=== PATIENT | female | born 1975 | race Caucasian/White ===

== ENCOUNTER → 2016-06-02 | Outpatient (CLI) | payer OTHER ==
[~2016-06-02] MED LIST: CIPRO 500MG TA500 MG PO; NORCO 325 MG-51 TAB PO; NORCO 325 MG-7.1 TAB PO
== END ==
LOC: BHSO 15:00
DX: F33.1 Major depressive disorder, recurrent, moderate (principal)

== ENCOUNTER → 2016-08-18 | Outpatient (CLI) | payer OTHER | LOC: BHSO 13:00 | DX: F33.2 Major depressive disorder, recurrent severe without psychotic features (principal) ==

== ENCOUNTER → 2016-08-28 | Outpatient (CLI) | payer OTHER | LOC: BHSO 08:21 | DX: F33.2 Major depressive disorder, recurrent severe without psychotic features (principal) ==

== ENCOUNTER → 2016-09-25 | Outpatient (CLI) | payer OTHER | LOC: BHSO 08:19 | DX: F33.41 Major depressive disorder, recurrent, in partial remission (principal) ==

== ENCOUNTER → 2016-11-15 | Outpatient (CLI) | payer OTHER | LOC: BHSO 08:05 | DX: F33.1 Major depressive disorder, recurrent, moderate (principal) ==

== ENCOUNTER → 2016-12-14 | Outpatient (CLI) | payer OTHER | LOC: BHSO 09:01 | DX: F33.2 Major depressive disorder, recurrent severe without psychotic features (principal) ==

== ENCOUNTER → 2017-01-03 | Outpatient (CLI) | payer OTHER | LOC: BHSO 16:01 | DX: F33.1 Major depressive disorder, recurrent, moderate (principal) ==

== ENCOUNTER → 2017-01-05 | Outpatient (CLI) | payer OTHER | LOC: BHSO 08:08 | DX: F33.1 Major depressive disorder, recurrent, moderate (principal) ==

== ENCOUNTER → 2017-01-22 | Outpatient (CLI) | payer OTHER | LOC: BHSO 13:05 | DX: F33.1 Major depressive disorder, recurrent, moderate (principal) ==

== ENCOUNTER → 2017-02-12 | Outpatient (CLI) | payer OTHER | LOC: BHSO 09:52 | DX: F33.2 Major depressive disorder, recurrent severe without psychotic features (principal) ==

== ENCOUNTER → 2017-02-22 | Outpatient (CLI) | payer OTHER | LOC: BHSO 14:00 | DX: F33.2 Major depressive disorder, recurrent severe without psychotic features (principal) ==

== ENCOUNTER → 2017-03-23 | Outpatient (CLI) | payer OTHER | LOC: BHSO 15:01 | DX: F33.2 Major depressive disorder, recurrent severe without psychotic features (principal) ==

== ENCOUNTER → 2017-04-25 | Outpatient (CLI) | payer OTHER | LOC: BHSO 13:52 | DX: Z01.89 Encounter for other specified special examinations (principal) ==

== ENCOUNTER → 2017-05-01 | Outpatient (CLI) | payer OTHER | LOC: BHSO 08:46 | DX: F33.2 Major depressive disorder, recurrent severe without psychotic features (principal) ==

== ENCOUNTER → 2017-05-14 | Outpatient (CLI) | payer OTHER | LOC: BHSO 09:00 | DX: F33.2 Major depressive disorder, recurrent severe without psychotic features (principal) ==

== ENCOUNTER → 2017-06-04 | Outpatient (CLI) | payer OTHER | LOC: BHSO 09:01 | DX: F33.2 Major depressive disorder, recurrent severe without psychotic features (principal) ==

== ENCOUNTER 2017-07-25 19:53 | Emergency (ER) | payer SELFPAY ==
[~2017-07-25] VITALS: Ht 162.6 cm; Wt 90.9 kg
[2017-07-25 20:36] LABS: COLLECTION METHOD CLEAN CATCH
[2017-07-25 20:45] LABS: MUCOUS Present /lpf; PH 6 (5-8); URINE APPEARANCE Cloudy; URINE BACTERIA None Seen /hpf; URINE BILIRUBIN Negative (NEGATIVE); URINE BLOOD 1+ (NEGATIVE); URINE COLOR Yellow; URINE GLUCOSE Negative (NEGATIVE); URINE KETONE 1+ (NEGATIVE); URINE LEUKOCYTE ESTERASE 3+ (NEGATIVE); URINE NITRATE Positive (NEGATIVE); URINE PROTEIN(semi-quant) 2+ (NEGATIVE)
[2017-07-25 21:42] VITALS: BP 118/72; TEMP 101.7
[2017-07-25] MEDS ORDERED: OMNICEF 300MG300 MG PO (21:49)
[2017-07-25 22:03] VITALS: PULSE 97
== END 2017-07-25 22:04 | disposition home or self-care (01) ==
LOC: COL.ER 19:53
PROVIDERS: Emergency Medicine
DX: N39.0 Urinary tract infection, site not specified (principal); J06.9 Acute upper respiratory infection, unspecified
CPT/HCPCS: J1885

== ENCOUNTER → 2017-08-03 | Outpatient (CLI) | payer BC ==
[~2017-08-03] MED LIST changes: +OMNICEF 300MG300 MG PO
== END ==
LOC: BHSO 08:40
DX: F33.1 Major depressive disorder, recurrent, moderate (principal)
CPT/HCPCS: G0463

== ENCOUNTER 2017-09-02 13:27 | Emergency (ER) | payer BC ==
[~2017-09-02] VITALS: Ht 162.6 cm; Wt 90.9 kg
[2017-09-02] MEDS ORDERED: CRUTCHES MC (14:12)
[2017-09-02 14:20] VITALS: BP 128/75; PULSE 96; TEMP 98.7
== END 2017-09-02 14:29 | disposition home or self-care (01) ==
LOC: COL.ER 13:27
DX: S93.402A Sprain of unspecified ligament of left ankle, initial encounter (principal); F32.9 Major depressive disorder, single episode, unspecified; F41.9 Anxiety disorder, unspecified; Z79.82 Long term (current) use of aspirin; W10.9XXA Fall (on) (from) unspecified stairs and steps, initial encounter

== ENCOUNTER 2017-09-05 16:56 | Emergency (ER) | payer BC ==
[~2017-09-05] VITALS: Ht 162.6 cm; Wt 90.9 kg
[~2017-09-05 16:56] MED LIST changes: +CRUTCHES MC
[2017-09-05 17:10] VITALS: BP 138/77; PULSE 79; TEMP 98.8
[2017-09-05] MEDS ORDERED: ABILIFY 15MG TA15 MG PO (17:16)
[2017-09-05] MEDS ORDERED: KLONOPIN 1MG1 MG PO (17:16)
== END 2017-09-05 17:44 | disposition home or self-care (01) ==
LOC: COL.ER 16:56
DX: S93.401A Sprain of unspecified ligament of right ankle, initial encounter (principal); X50.0XXA Overexertion from strenuous movement or load, initial encounter

== ENCOUNTER → 2017-09-14 | Outpatient (CLI) | payer BC ==
[~2017-09-14] MED LIST changes: +ABILIFY 15MG TA15 MG PO; +KLONOPIN 1MG1 MG PO
== END ==
LOC: BHSO 08:32
DX: F31.81 Bipolar II disorder (principal)
CPT/HCPCS: G0463

== ENCOUNTER → 2017-10-17 | Outpatient (CLI) | payer BC | LOC: BHSO 09:53 | DX: F33.1 Major depressive disorder, recurrent, moderate (principal) ==

== ENCOUNTER → 2017-11-12 | Outpatient (CLI) | payer BC | LOC: BHSO 09:05 | DX: F33.2 Major depressive disorder, recurrent severe without psychotic features (principal) ==

== ENCOUNTER → 2017-11-29 | Outpatient (CLI) | payer BC | LOC: BHSO 08:32 | DX: F31.60 Bipolar disorder, current episode mixed, unspecified (principal) | CPT/HCPCS: G0463 ==

== ENCOUNTER → 2018-03-27 | Outpatient (CLI) | payer BC | LOC: BHSO 08:18 | DX: F31.75 Bipolar disorder, in partial remission, most recent episode depressed (principal) | CPT/HCPCS: G0463 ==

== ENCOUNTER → 2018-04-12 | Outpatient (CLI) | payer BC | LOC: BHSO 10:58 | DX: F33.2 Major depressive disorder, recurrent severe without psychotic features (principal) ==

== ENCOUNTER → 2018-04-24 | Outpatient (CLI) | payer BC | LOC: BHSO 14:00 | DX: F33.2 Major depressive disorder, recurrent severe without psychotic features (principal) ==

== ENCOUNTER → 2018-05-07 | Outpatient (CLI) | payer BC | LOC: BHSO 15:57 | DX: F33.1 Major depressive disorder, recurrent, moderate (principal) ==

== ENCOUNTER 2018-05-23 09:06 | Emergency (ER) | payer SELFPAY ==
[~2018-05-23] VITALS: Ht 162.6 cm; Wt 81.8 kg
[2018-05-23 10:10] LABS: COLLECTION METHOD CLEAN CATCH
[2018-05-23 10:15] LABS: BASO # 0.1 (0.0-0.2); BASO % 0.5 % (0.0-2.0); EOS # 0.1 (0.0-0.7); EOS % 1.3 % (0-4.0); GRAN # 6.6 (1.4-6.5); GRAN % 65.5 % (42.2-75.2); HEMOGLOBIN 11.4 g/dl (12.5-16.0); LYMPH # 2.6 (1.2-3.4); LYMPH % 25.8 % (20.0-51.0); MEAN CELL VOLUME 84 fl (80.0-100.0); MEAN CORPUSCULAR HEMOGLOBIN 27 pg (27.0-31.0); MEAN CORPUSCULAR HGB CONC 32 g/dl (33.0-37.0); MEAN PLATELET VOLUME 11.2 fl (7.4-10.4); MONO # 0.7 (0.1-0.6); MONO % 6.5 % (1.7-9.3); PLATELET COUNT 305 K/mm3 (130-400); RED BLOOD COUNT 4.24 M/mm3 (4.10-5.30); REDCELL DISTRIBUTION WIDTH-CV 14.6 % (11.5-14.5)
[2018-05-23 10:16] LABS: HEMATOCRIT 35.8 % (37.0-47.0)
[2018-05-23 10:20] LABS: MUCOUS Present /lpf; PH 6 (5-8); URINE APPEARANCE Hazy; URINE BACTERIA None Seen /hpf; URINE BILIRUBIN Negative (NEGATIVE); URINE BLOOD Negative (NEGATIVE); URINE COLOR Yellow; URINE GLUCOSE Negative (NEGATIVE); URINE KETONE Negative (NEGATIVE); URINE LEUKOCYTE ESTERASE Negative (NEGATIVE); URINE NITRATE Negative (NEGATIVE); URINE PROTEIN(semi-quant) Negative (NEGATIVE); URINE UROBILINOGEN Negative (NEGATIVE)
[2018-05-23 10:30] LABS: ALANINE AMINOTRANSFERASE 21 U/L (9-52); ALBUMIN 4.5 gm/dL (3.5-5.0); ALKALINE PHOSPHATASE 65 U/L (50-136); ANION GAP 8 mmol/L (7-16); AST,SGOT 23 U/L (15-37); BILIRUBIN,TOTAL 0.3 mg/dL (0.0-1.0); BLOOD UREA NITROGEN 15 mg/dL (7-17); CALCIUM 9.4 mg/dL (8.4-10.2); CARBON DIOXIDE 22 mmol/L (22-30); CHLORIDE 110 mmol/L (98-107); CREATININE, serum 0.85 mg/dL (0.52-1.25); GLUCOSE 97 mg/dL (74-106); SODIUM 140 mmol/L (137-145); TOTAL PROTEIN 8.1 gm/dL (6.4-8.2)
[2018-05-23 10:31] LABS: ACETAMINOPHEN < 10 ug/mL (10-30); ALCOHOL(ethanol),MEDICAL < 10 mg/dL; SALICYLATE < 1.0 mg/dL
[2018-05-23 10:37] LABS: TRICYCLIC ANTIDEPRESS URINE NEGATIVE
[2018-05-23 18:06] VITALS: BP 132/97; PULSE 77; TEMP 98.7
== END 2018-05-23 18:12 ==
LOC: COL.ER 09:06
PROVIDERS: Physician Assistant
DX: R45.851 Suicidal ideations (principal); F32.9 Major depressive disorder, single episode, unspecified; Z63.5 Disruption of family by separation and divorce; Z88.6 Allergy status to analgesic agent

== ENCOUNTER → 2018-05-23 | Outpatient (CLI) | payer BC | LOC: BHSO 08:12 | DX: F31.4 Bipolar disorder, current episode depressed, severe, without psychotic features (principal) | CPT/HCPCS: G0463 ==

== ENCOUNTER → 2018-06-07 | Outpatient (CLI) | payer SELFPAY | LOC: BHSO 13:55 | DX: F33.2 Major depressive disorder, recurrent severe without psychotic features (principal) ==

== ENCOUNTER → 2018-06-13 | Outpatient (CLI) | payer SELFPAY | LOC: BHSO 16:02 | DX: F33.1 Major depressive disorder, recurrent, moderate (principal) ==

== ENCOUNTER → 2018-06-20 | Outpatient (CLI) | payer SELFPAY | LOC: BHSO 14:59 | DX: F33.41 Major depressive disorder, recurrent, in partial remission (principal) | CPT/HCPCS: G0463 ==

== ENCOUNTER → 2018-06-26 | Outpatient (CLI) | payer SELFPAY | LOC: BHSO 14:59 | DX: F33.2 Major depressive disorder, recurrent severe without psychotic features (principal) ==

== ENCOUNTER → 2018-07-10 | Outpatient (CLI) | payer SELFPAY | LOC: BHSO 09:00 | DX: F33.2 Major depressive disorder, recurrent severe without psychotic features (principal) ==

== ENCOUNTER → 2018-07-15 | Outpatient (CLI) | payer SELFPAY | LOC: BHSO 08:20 | DX: F33.41 Major depressive disorder, recurrent, in partial remission (principal) | CPT/HCPCS: G0463 ==

== ENCOUNTER → 2018-07-26 | Outpatient (CLI) | payer SELFPAY | LOC: BHSO 15:01 | DX: F33.1 Major depressive disorder, recurrent, moderate (principal) ==

== ENCOUNTER → 2018-08-07 | Outpatient (CLI) | payer SELFPAY | LOC: BHSO 15:57 | DX: F33.1 Major depressive disorder, recurrent, moderate (principal) ==

== ENCOUNTER → 2018-08-19 | Outpatient (CLI) | payer SELFPAY | LOC: BHSO 09:01 | DX: F33.1 Major depressive disorder, recurrent, moderate (principal) ==

== ENCOUNTER → 2018-09-05 | Outpatient (CLI) | payer SELFPAY | LOC: BHSO 16:01 | DX: F33.1 Major depressive disorder, recurrent, moderate (principal) ==

== ENCOUNTER → 2018-09-13 | Outpatient (CLI) | payer SELFPAY | LOC: BHSO 08:18 | DX: F33.41 Major depressive disorder, recurrent, in partial remission (principal) | CPT/HCPCS: G0463 ==

== ENCOUNTER → 2018-09-18 | Outpatient (CLI) | payer SELFPAY | LOC: BHSO 09:58 | DX: F33.1 Major depressive disorder, recurrent, moderate (principal) ==

== ENCOUNTER → 2018-10-04 | Outpatient (CLI) | payer SELFPAY | LOC: BHSO 13:59 | DX: F33.2 Major depressive disorder, recurrent severe without psychotic features (principal) ==

== ENCOUNTER → 2018-10-16 | Outpatient (CLI) | payer SELFPAY | LOC: BHSO 08:27 | DX: F33.41 Major depressive disorder, recurrent, in partial remission (principal) | CPT/HCPCS: G0463 ==

== ENCOUNTER → 2018-10-30 | Outpatient (CLI) | payer SELFPAY | LOC: BHSO 14:02 | DX: F33.1 Major depressive disorder, recurrent, moderate (principal) ==

== ENCOUNTER → 2018-12-09 | Outpatient (CLI) | payer SELFPAY | LOC: BHSO 15:57 | DX: F33.1 Major depressive disorder, recurrent, moderate (principal) ==

== ENCOUNTER → 2018-12-25 | Outpatient (CLI) | payer SELFPAY | LOC: BHSO 08:56 | DX: F33.1 Major depressive disorder, recurrent, moderate (principal) ==

== ENCOUNTER → 2018-12-26 | Outpatient (CLI) | payer SELFPAY | LOC: BHSO 08:37 | DX: F33.42 Major depressive disorder, recurrent, in full remission (principal) | CPT/HCPCS: G0463 ==

== ENCOUNTER → 2019-01-07 | Outpatient (CLI) | payer SELFPAY | LOC: BHSO 09:02 | DX: F33.1 Major depressive disorder, recurrent, moderate (principal) ==

== ENCOUNTER → 2019-05-26 | Outpatient (CLI) | payer BC | LOC: BHSO 09:17 | DX: F33.1 Major depressive disorder, recurrent, moderate (principal) | CPT/HCPCS: G0463 ==